=== PATIENT | male | born 1930 | race Caucasian/White ===

== ENCOUNTER → 2016-07-09 | Outpatient (CLI) | payer MEDICARE, OTHER ==
[~2016-07-09] MED LIST: ALAWAY10 ML OPHTH; ALEVE220 MG PO; ASPIRIN325 MG PO; BUFFERIN 325 M325 MG PO; CARDIZEM CD120 MG PO; CORDARONE,PACE200 MG PO; FLOMAX0.4 MG PO; LANOXIN (DIGI125 MCG PO; SOOTHE LUBRICA1 EACH OPHTH; TYLENOL EXTRA500 MG PO; ULORIC80 MG PO; ULTRAM50 MG PO; ZITHROMAX250 MG PO
--- NOTE | ~2016-07-09 | ENPV ---
Vascular Lower Extremities DVT Study Procedure Demographics Patient Name DOROTHY DOWNS Date of Study 07/09/2016 Patient Number [id number] Gender Male Date of 1930 Age 86 Visit Number [id number] Height Accession Number [id number] Weight Room Number BSA BMI Referring [facility] Milton Jarquin MD Interpreting Naman Andrea MD Physician Physician Physician Ordering [facility] Milton Jarquin Backpackers Manager Physician Skiver [employer] Verena Gonzalez, RT,RVT,RDCS Conclusions Summary Normal venous duplex examination of the legs bilaterally with normal venous Doppler signals noted throughout. No evidence of thrombophlebitis is noted bilaterally in the deep and superficial veins of the legs. Small calf thrombi cannot be excluded. Procedure Type of Study: Veins:Lower Extremities DVT Study, Venous Duplex Lower Extremity Bilateral. Indications for Study:Bilateral lower extremity edema. Appropriate Use Criteria:9 Patient Status:Routine. Study Location:Vascular Lab. Technical Quality:Adequate visualization. - Preliminary reported to:Dr. Andres Torres's nurse.. Velocities are measured in cm/s ; Diameters are measured in cm Right Lower Extremities DVT Study Measurements Right 2D and Doppler Measurements + + + + +------+------+ + !Location !Visualized!Compressibility!Thrombosis!Signal!Reflux!Reflux ! ! ! ! ! ! ! !(sec) ! + + + + +------+------+ + !GSV Thigh !Yes !Yes !None !Phasic!No ! ! + + + + +------+------+ + !Common !Yes !Yes !None !Phasic!No ! ! !Femoral ! ! ! ! ! ! ! + + + + +------+------+ + !Prox !Yes !Yes !None !Phasic!No ! ! !Femoral ! ! ! ! ! ! ! + + + + +------+------+ + !Mid Femoral!Yes !Yes !None !Phasic!No ! ! + + + + +------+------+ + !Dist !Yes !Yes !None !Phasic!No ! ! !Femoral ! ! ! ! ! ! ! + + + + +------+------+ + !Popliteal !Yes !Yes !None !Phasic!No ! ! + + + + +------+------+ + !Gastroc !Yes !Yes !None !Phasic!No ! ! + + + + +------+------+ + !PTV !Yes !Yes !None !Phasic!No ! ! + + + + +------+------+ + !Peroneal !Yes !Yes !None !Phasic!No ! ! + + + + +------+------+ + Left Lower Extremities DVT Study Measurements Left 2D and Doppler Measurements + + + + +------+------+ + !Location !Visualized!Compressibility!Thrombosis!Signal!Reflux!Reflux ! ! ! ! ! ! ! !(sec) ! + + + + +------+------+ + !GSV Thigh !Yes !Yes !None !Phasic!No ! ! + + + + +------+------+ + !Common !Yes !Yes !None !Phasic!No ! ! !Femoral ! ! ! ! ! ! ! + + + + +------+------+ + !Prox !Yes !Yes !None !Phasic!No ! ! !Femoral ! ! ! ! ! ! ! + + + + +------+------+ + !Mid Femoral!Yes !Yes !None !Phasic!No ! ! + + + + +------+------+ + !Dist !Yes !Yes !None !Phasic!No ! ! !Femoral ! ! ! ! ! ! ! + + + + +------+------+ + !Popliteal !Yes !Yes !None !Phasic!No ! ! + + + + +------+------+ + !Gastroc !Yes !Yes !None !Phasic!No ! ! + + + + +------+------+ + !PTV !Yes !Yes !None !Phasic!No ! ! + + + + +------+------+ + !Peroneal !Yes !Yes !None !Phasic!No ! ! + + + + +------+------+ + Signature dtt: MINOR STOREY dtdanish: 07/09/16 1334 Physician Self Rashida
== END | disposition disaster alternative care site (69) ==
LOC: GCAR 13:27
DX: M79.89 Other specified soft tissue disorders (principal); D47.3 Essential (hemorrhagic) thrombocythemia

== ENCOUNTER 2016-11-03 08:05 | Inpatient (IN) | payer MEDICARE, OTHER ==
[~2016-11-03] VITALS: Ht 180.3 cm; Wt 105.1 kg
--- NOTE | ~2016-11-03 | CON ---
PATIENT'S NAME: DOROTHY MA [facility] AGE: 86 Y [address] ROOM: [id number] [place], [place] [address] LOCATION: GPCU ADMIT DATE: 11/03/2016 Consultation DISCHARGE DATE: FAMILY PHYSICIAN: Milton Campos MD ATTENDING PHYSICIAN: RODOLFO VALVERDE DATE OF CONSULTATION: 11/03/2016 REFERRING PHYSICIAN: Kamryn Kahn MD This is a patient of Dr. Valverde. Dear Dr. Valverde: Thank you for asking me to see Mr. Ma who is an 86-year-old male patient who was hospitalized from home today. Apparently, he was in his usual state of health about 2 weeks ago. He in fact had physical about a month ago with Dr. Campos at [facility], and apparently he was doing well. About 2 weeks back, he got new glasses and since then, he has been noticing some dizziness off and on, which was severe enough about a week ago that made him vomit quite a bit. After that, he felt reasonably well. Again, this morning around 4 o'clock. He went to the bathroom and came back and just could not catch his breath and he had to sit up in his chair. He tried to walk to another area of his house, which was just 15 feet away and he could not make it. He did not have any chest pain. He just did not feel good and he thinks he was quite short of breath. He eventually came to the emergency room and by the time he came to the emergency room, he was reasonably well. His troponins were elevated, which is the main reason for consultation. He has been in functional class III for the past 6 months at least. There is no paroxysmal nocturnal dyspnea or orthopnea. The patient is quite limited by his back. He has no history of sleep apnea as far as he can tell. There is no lightheadedness. He denies any syncope, palpitations, or ankle swelling. The patient denies hypertension or diabetes. His cholesterol is unknown. He quit smoking in 1974 and he has no family history of premature coronary artery disease. There is no prior history of HI or angina or nitroglycerin use. He denies rheumatic fever. He has a history of heart murmur. He denies congestive heart failure. About a year ago in relation to infection, he developed atrial fibrillation which was paroxysmal in nature. He has been on Cardizem and amiodarone for it ever since. MEDICATIONS: 1. Uloric 80 mg once a day. PATIENT'S NAME: DOROTHY MA [facility] AGE: 86 Y [address] ROOM: [place] [address] [facility] ADMIT DATE: 11/03/2016 Consultation DISCHARGE DATE: FAMILY PHYSICIAN: Milton Campos MD ATTENDING PHYSICIAN: RODOLFO VALVERDE 2. Alaway eye drops p.r.n. dry eyes. 3. Glycol eye drops. 4. Amiodarone 200 mg, half a tablet a day. 5. Diltiazem CD 120 mg once a day. 6. Aspirin/calcium carbonate/Mag 325 mg a day. 7. Acetaminophen 500 mg a day. ALLERGIES: SULFA. PAST MEDICAL HISTORY: 1. History of Roxanne-Durán tear. 2. DJD. 3. Thrombocytosis. 4. GERD. 5. Myelodysplastic syndrome. 6. History of sleep apnea. 7. History of hernia repair. 8. Total left hip arthroplasty x3. FAMILY HISTORY: No premature coronary artery disease. SOCIAL HISTORY: The patient is . He denies abusing alcohol. His appetite and weight are stable. Sleep is fair. REVIEW OF SYSTEMS: A 12-point review of systems reveal the following positives: 1. His nose runs all the time. 2. Corrective lenses. 3. History of duodenal ulcer. 4. Chronic back pain. PHYSICAL EXAMINATION: VITAL SIGNS: On examination, his blood pressure is 100/60, heart rate is 78 and regular, respiration is 18, and oxygen saturations 95% on room air. Afebrile. HEENT: Normal. He is somewhat pale. NECK: Supple. No JVD, thyromegaly, lymphadenopathy, or carotid bruit. PMI is not well located. First and second heart sounds are regular. There are no added sounds or murmurs. CHEST: Clear to auscultation. ABDOMEN: Soft and nontender. EXTREMITIES: Reveal no edema. PATIENT'S NAME: DOROTHY MA [facility] AGE: 86 Y [address] ROOM: [place] [address] LOCATION: GPCU ADMIT DATE: 11/03/2016 Consultation DISCHARGE DATE: FAMILY PHYSICIAN: Milton Campos MD ATTENDING PHYSICIAN: RODOLFO VALVERDE CENTRAL NERVOUS SYSTEM: Intact. ASSESSMENT: An 86-year-old male patient who became fairly suddenly short of breath this morning. He has been having intermittent dizzy spells for the past 2 weeks or so. He has not had any chest pain but his troponins are elevated and his EKG is negative for any acute changes. His chest x-ray reveals no evidence of congestive heart failure. He is anemic. He has severe thrombocytosis. His white count is elevated. His potassium may be elevated because of the white count being high and thrombocytosis as well. His troponins are elevated. His potassium is elevated. His albumin is very low at 1.7. RECOMMENDATIONS: We will follow his troponins. We will check his D-dimer. His proBNP is elevated. We will get an echocardiogram and probably try and do a Lexiscan Cardiolite study tomorrow before making any further decision regarding his management. Again, I appreciate this opportunity to participate in the care of Mr. Ma. MD LOVE GRAYSON/gurdeep /[id number] CC: Rodolfo Valverde MD d: 11/04/16 0010 t: 11/05/16 0801, CONSULTATION REPORT
--- NOTE | ~2016-11-03 | HP ---
PATIENT'S NAME: DOROTHY DOWNS [facility] AGE: 86 Y [address] ROOM: [id number] [place], [place] [address] LOCATION: GPCU ADMIT DATE: 11/03/2016 History & Physical DISCHARGE DATE: FAMILY PHYSICIAN: Milton Campos MD ATTENDING PHYSICIAN: RODOLFO VALVERDE DATE OF SERVICE: 11/03/2016 CHIEF COMPLAINT: Shortness of breath, dizziness, presyncope. HISTORY OF PRESENT ILLNESS: The patient is a very pleasant 86-year-old male who presented to the emergency department with the aforementioned complaints. Also noting that he had vomited twice as of late. He felt generally unwell, and had noted onset of symptoms over the past couple of weeks, somewhat subacutely, and had previously attributed his dizziness and presyncopal symptoms to a new pair of eyeglasses that he recently received. He felt the prescription was off, thus altering his perception and making him feel unwell. The vomiting and shortness of breath are more recent developments. No fevers or chills. No chest pain. No abdominal pain. No bowel or bladder dysfunction and no leg swelling. Specifically, the patient notes no blood in vomit as well as no hematochezia or melena with a recent stool, just as recently as yesterday. He denies any other obvious source of GI bleeding. He does have a history of AFib with RVR in the setting of a pneumonia, approximately a year ago, but per records, does not appear to be on any blood thinner therapy. He does have a remote history of a GI bleed from a duodenal ulcer, but states this was at age 24. He also had a noted Roxanne-Durán tear in June of 2015. There is some question regarding the chronicity of his anemia as last labs on our record approximately a year ago show a hemoglobin of 8.4, and patient notes that he was seen in Dr. Campos's office approximately a month ago with lab at that time, which he was told were very stable. Also in records, the patient does have a diagnosis of MDS, though denies ever having had a bone marrow biopsy. PAST MEDICAL HISTORY: 1. Thrombocytosis. 2. Osteoarthritis. 3. GERD. 4. Questionable MDS. 5. Obstructive sleep apnea. 6. History of AFib with RVR, provoked by acute infection, currently well controlled. PAST SURGICAL HISTORY: 1. Tonsils and adenoidectomy. PATIENT'S NAME: DOROTHY DOWNS [facility] AGE: 86 Y [address] ROOM: [id number] [place], [place] [address] [facility] ADMIT DATE: 11/03/2016 History & Physical DISCHARGE DATE: FAMILY PHYSICIAN: Milton Campos MD ATTENDING PHYSICIAN: RODOLFO VALVERDE 2. Hernia repair in the 1950s. 3. Left total hip arthroplasty with subsequent revisions. FAMILY HISTORY: Dad had a heart murmur and COPD. Mom had arthritis, otherwise reviewed and noncontributory to the current presentation. SOCIAL HISTORY: The patient reports an extensive remote smoking history, however, quit years ago. Previously did also smoke from a pipe. As of late, has noted occasional alcohol use. Previously, this was more frequent and documented as daily. ALLERGIES: NO KNOWN DRUG ALLERGIES. MEDICATIONS: Currently being reconciled. Most recent discharge notes an aspirin, Uloric, Cardizem, amiodarone, as most pertinent medications. REVIEW OF SYSTEMS: A complete review of systems was performed and negative except as noted above in HPI. PHYSICAL EXAMINATION: VITAL SIGNS: In the emergency department notable for temp 96.9, pulse 78, respirations 18, blood pressure 101/58, saturating 95% on room air. GENERAL: The patient is a pale-appearing, very pleasant, elderly male who actually appears younger than stated age, seen in no acute distress in the emergency department. HEENT: Head: Normocephalic, atraumatic. Eyes: Pupils equal, round, reactive to light. Extraocular muscles are intact. Conjunctival pallor noted. No scleral icterus. ENT: Dry mucous membranes with no nasal discharge appreciated. NECK: Supple. No thyromegaly. No palpable lymphadenopathy. No JVD. CARDIOVASCULAR: With regular rate and rhythm. No murmurs appreciated with 2+ pulses bilateral, radial, and dorsalis pedis. LUNGS: Respirations are clear to auscultation bilaterally with normal effort. Saturating well on room air. ABDOMEN: Soft, nontender, and nondistended with normoactive bowel sounds. EXTREMITIES: Without appreciable edema or other skin lesions. NEUROLOGIC: The patient is alert and oriented, pleasant and cooperative. Moving all extremities spontaneously without appreciable focal deficit. PSYCHIATRIC: Normal mood and affect. LABORATORY DATA AND IMAGING STUDIES: In the emergency department, CBC notable for a white count of 11.3, hemoglobin PATIENT'S NAME: DOROTHY DOWNS [facility] AGE: 86 Y [address] ROOM: [id number] [place], [place] [address] LOCATION: GPCU ADMIT DATE: 11/03/2016 History & Physical DISCHARGE DATE: FAMILY PHYSICIAN: Milton Campos MD ATTENDING PHYSICIAN: RODOLFO VALVERDE 5.1, MCV non calculable, platelets 578. CMP notable for sodium 150, potassium 2.5, chloride 126, bicarb 15 with an anion gap of approximately 7-8 once corrected for albumin, BUN 15, creatinine 0.6, glucose 60. LFTs notable for total protein of 2.9, albumin 1.7, AST 11, ALT less than 10, alkaline phosphatase 15, bilirubin 0.4. Troponin 0.189. An EKG showing first-degree AV block without ischemic changes. Procalcitonin is less than 0.05. Lactic acid is 1.4. Fecal occult blood test in the ER is negative. Lipase is 103. TSH is 2.89. BNP is 819. ASSESSMENT: 1. Acute on chronic severe anemia. 2. Severe hypokalemia. 3. Hypernatremia. 4. Severe protein-calorie malnutrition. 5. Possible myelodysplastic syndrome. 6. Mild troponin elevation. 7. Non-anion gap metabolic acidosis. 8. Hypoglycemia. PLAN: We will admit the patient to PCU on telemetry given degree of electrolyte and hemoglobin derangements. In the emergency department, 2 units of packed red blood cells transfused, has been ordered as well as initial efforts at potassium repletement with 80 mEq given prior to my evaluation. We will further workup this anemia given absence of potential source by history with LDH, haptoglobin, reticulocyte count, and iron studies. This will be done in advance of transfusion. We will start D5 half-normal saline with 20 mEq of potassium chloride to help in correction of hypernatremia, hypokalemia, hypoglycemia, respectively. There is question of history of MDS by history though not sure that this has been confirmed previously, we will attempt to obtain records from Dr. Campos's office regarding most recent labs and prior evaluation of anemia and thrombocytosis. The patient would appear to fit with severe protein-calorie malnutrition based on LFT panel and questionability of synthetic function of his liver, though no prior history of liver disease. We will consider further workup regarding this as course continues. For mild troponin elevation, we will repeat this in approximately 6 hours and stop there if trending downward, as the patient is without EKG changes or chest pain acutely, and this is likely secondary to demand ischemia. We will hold pharmacologic DVT prophylaxis given degree of acute anemia. The patient is a full code. DISPOSITION: To be determined pending initial course, likely anticipate at least 2-3 days during stay and we will have PT, OT, and Nutrition see patient. PATIENT'S NAME: DOROTHY DOWNS [facility] AGE: 86 Y [address] ROOM: [id number] [place], [place] [address] [facility] ADMIT DATE: 11/03/2016 History & Physical DISCHARGE DATE: FAMILY PHYSICIAN: Milton Campos MD ATTENDING PHYSICIAN: RODOLFO VALVERDE TIME: I spent 35 minutes on date of admission, reviewing records from the emergency department as well as in discussion with Dr. Jo, and [id number] evaluation of the patient determining plan of care. RODOLFO VALVERDE MD JLUIS/modl /[id number] ADDENDUM TO DICTATION: Received notification from lab approximately 1600 on 11/03 that repeat blood sample is drastically different than initial sample, and looks as if initial sample was diluted by NS. Repeat labs notable for Hgb 10.5, K 6.1, Troponin now 0.7. I have ordered a STAT EKG to assess for changes related to hyperkalemia, as well as ischemic changes now in the setting of elevated troponin, which in hindsight could be related to presyncopal symptoms along with nausea/vomiting and diaphoresis and was likely diluted on initial sample. I have called and discussed the case with Dr. Juares with cardiology and we will pursue treatment as possible NSTEMI, starting a heparin infusion now. We will also trend cardiac enzymes. I have discussed these findings and the plan of care with the patient, who voices understanding. Rodolfo Valverde D: [id number] T: 702 HISTORY & PHYSICAL
--- NOTE | ~2016-11-03 | ER ---
PATIENT'S NAME: DOROTHY DOWNS [facility] AGE: 86 Y [address] ROOM: [address] [place], [place] [address] LOCATION: GPCU ADMIT DATE: 11/03/2016 ER/Outpatient Report DISCHARGE DATE: FAMILY PHYSICIAN: Milton Campos MD ATTENDING PHYSICIAN: CHANEL VALVERDE TIME OF ARRIVAL: 0805 hours. TIME OF EVALUATION: 0806 hours. CHIEF COMPLAINT: Shortness of breath, dizzy. HISTORY OF PRESENT ILLNESS: The patient is an 86-year-old male who presents to the emergency department today with a chief complaint of shortness of breath and dizzy. He reports it started a few days prior to arrival. It has just progressively worsened. He reports that he got up to go to the bathroom and felt very lightheaded, like he was going to pass out. Denies any fevers or chills. Does report some nausea and vomiting x2. Denies any blood in his vomit. Denies any cough. No chest pain. Denies any diarrhea. He reports he had a normal bowel movement yesterday. It was brown. No dark, tarry stools. No blood in the stool. PAST MEDICAL HISTORY: Hyperuremia, coronary artery disease, atrial fibrillation, osteoarthritis, chronic dyspepsia with history of GI bleed, and Roxanne-Durán tear. PAST SURGICAL HISTORY: Tonsils and adenoids, hernia, left hip x2, and left heart catheterization. SOCIAL HISTORY: The patient has a [id number] of smoking, quit in 1974. Quit drinking alcohol 3 years ago. Denies any illicit drug use. ALLERGIES: SULFA WHICH CAUSES A RASH. MEDICATIONS: Please see list. CAR MANAGER: Dr. Pierre. PATIENT'S NAME: DOROTHY DOWNS [facility] AGE: 86 Y [address] ROOM: [address] [place], [place] [address] LOCATION: GPCU ADMIT DATE: 11/03/2016 ER/Outpatient Report DISCHARGE DATE: FAMILY PHYSICIAN: Milton Campos MD ATTENDING PHYSICIAN: CHANEL VALVERDE REVIEW OF SYSTEMS: All systems are reviewed by myself and are negative with the exception of those discussed in the HPI and Past Medical History. PHYSICAL EXAMINATION: VITAL SIGNS: Weight 104.3 kg, blood pressure 101/58, pulse 78, respiratory rate 18, temperature 96.9, and oxygen saturation 95% on room air. GENERAL: The patient is an 86-year-old male, appears stated age, in no acute distress at this time. HEENT: Head is normocephalic and atraumatic. Pupils are equal, round, and reactive to light and accommodating. Conjunctivae are mildly pale. NECK: Supple. There is no nuchal rigidity. CARDIOVASCULAR: Regular rate and rhythm. No murmurs, rubs, or gallops. LUNGS: Clear to auscultation bilaterally. No wheezes, rales, or rhonchi. ABDOMEN: Soft, nontender, and nondistended. No rebound, rigidity, or guarding. MUSCULOSKELETAL: The patient moves all 4 extremities. SKIN: Warm and dry. LABORATORY AND X-RAY DATA: Labs and x-rays are obtained. EKG is obtained, is interpreted by myself at 0819 hours, shows sinus rhythm with a rate of 75, left axis deviation, MD interval 252. Otherwise, normal interval. No ST elevation or ST depression. There are nonspecific T-waves. Lactate is normal. CBC: White blood cell count 11.3, hemoglobin 5.1, hematocrit 18, and platelets 578. PTT is normal. INR is 1.12. CMP: Sodium 150, potassium 2.5, chloride 126, CO2 of 15, BUN and creatinine normal, glucose 60. AST is normal. ALT is less than 10. Lipase is normal. Occult blood is negative. Procalcitonin is less than 0.05. CK is 20, CK-MB is normal, troponin 0.189. Free T4 is normal, TSH is normal. ProBNP is 819. IMPRESSION: 1. Acute on chronic blood loss anemia. 2. Elevated troponin, likely due to acute on chronic blood loss anemia. 3. Hypernatremia. 4. Hypokalemia. 5. Initial visit. EMERGENCY DEPARTMENT COURSE: The patient was brought back to the examination room. Seen and evaluated by myself. IV is established. Laboratory analysis and imaging are obtained as described above. I have discussed the results with the patient. I have recommended admission to the hospital for further evaluation, treatment, and management. The patient is agreeable. His is agreeable. The patient's risks and benefits are discussed for blood transfusion. The patient does wish PATIENT'S NAME: DOROTHY [facility] AGE: 86 Y [address] ROOM: [address] [place], [place] [address] [facility] ADMIT DATE: 11/03/2016 ER/Outpatient Report DISCHARGE DATE: FAMILY PHYSICIAN: Milton Campos MD ATTENDING PHYSICIAN: CHANEL VALVERDE to proceed with transfusion. The patient is typed and crossed for 4 units and is written for transfusion of 2 units. I have also given the patient 20 mEq of potassium chloride IV as well as 60 mEq of potassium chloride orally. I have discussed the case with Dr. Valverde who is on-call for the Hospitalist Service. He does agree to accept the patient for further evaluation, treatment, and management. The patient is also given 1 L of normal saline IV. The patient's questions are answered. He is without further questions at this time. DISPOSITION: The patient is admitted under the care of Dr. Valverde in stable condition. DO GIORGI RIVERA/zelaleml /[id number] d: 11/03/16 1342 t: 11/04/16 0810, OUTPATIENT REPORT
--- NOTE | ~2016-11-03 | ESTC ---
Cardiac Perfusion Imaging Demographics Patient Name YARELI Morgan Gender Male Patient Number [id number] Race Visit Number [id number] Ethnicity Corporate ID Room Number G6318 Accession Number [id number] Height 71 inches Date of 1930 Weight 239 pounds Interpreting Criss Harry Date of study 11/04/2016 Physician Supervising /YULIAP Criss Harry NM Technologist Mateo Terry MD Ordering Physician Stress Jadon Bates hitch technician RVT Stress ECG Reading Criss Harry Nurse Margaret Jaimes RN Physician The procedure was explained in detail to the patient. Risks, complications and alternative treatments were reviewed. Written consent was obtained. Medications Reviewed with Patient prior to Procedure. Procedure Procedure Type: Nuclear Stress Test:Pharmacological, Lexiscan, Cardiolite Stress Test Procedure Start time: 11/04/2016 09:55 Indications: Shortness of breath and Dizziness. Conclusions Summary Lexiscan cardiolite with no EKG changes of ischemia. Basal 2/3 of the inferior septum,inferior wall and inferolateral moderate fixed defect most consistent with soft tissue attenuation. LVEF : 74%. Normal WM. Stress Protocols Resting ECG RSR. 1 AV block. Bi fascicular block. Pre-stress physical exam: Un changed. Predicted HR: 133 bpm ECG Findings No ECG changes suggestive of ischemia. Arrhythmias No rhythm abnormality. Symptoms No symptoms with Lexiscan infusion. Stress Interpretation Lexiscan cardiolite with blunted heart rate response and no symptoms. No EKG changes of ischemia. No new arrythmias. Imaging Results Summed scores - Summed stress score: 8 - Summed rest score: 8 - Summed difference score: 0 Stress ejection Ejection fraction:74 % EDV :130 ml ESV :34 ml Stroke volume :96 ml LV mass :158 gr LV size:Normal Normal LV function Imaging Protocols Rest Stress Isotope:Tc99m Sestamibi IV Isotope: Tc99m Sestamibi IV Isotope dose:14.6 mCi Isotope dose:43.3 mCi Date:11/04/2016 08:33 Date:11/04/2016 11:32 Technique: SPECT Technique: Gated Supine SPECT Supine Scan Time:45-60 minutes post Scan Time:45-60 minutes post injection injection Procedure Medications - Regadenoson (Lexiscan) 0.4 mg IV over 10-15 sec. I.V. . Medications administered per verbal order and read back to physician prior to administration. Medical History Admission Data Admission date: 11/03/2016 Admission Time: 09:54 Hospital Status: Inpatient. Signatures dtt: Kamryn Kahn dtd: 11/04/16 0955 Physician Self Edit
--- NOTE | ~2016-11-03 | CON ---
PATIENT'S NAME: DOROTHY MA [facility] AGE: 86 Y [address] ROOM: G6318 [place], [place] [address] LOCATION: GPCU ADMIT DATE: 11/03/2016 Consultation DISCHARGE DATE: 11/07/2016 FAMILY PHYSICIAN: Milton Campos MD ATTENDING PHYSICIAN: Rodolfo Valverde REFERRING PHYSICIAN: Kamryn Kahn MD Consult to Dr. Jamal Buckley. REASON FOR VISIT: Dorothy Ma is an 86-year-old man hospitalized for evaluation and treatment of atypical chest pain and dyspnea at rest who carries the diagnosis of myelodysplastic syndrome-thrombocytosis. HISTORY OF PRESENT ILLNESS: The history of the present illness is from the patient who is a reasonably good historian; his physician, Dr. Milton Campos; the [facility] record; and the current and [facility] record. Mr. Ma was in his normal state of health until 4 a.m. on 11/03/2016. He lived at home in [place], [place] with his . He had no exercise program. He was limited by pain in his knees and was not limited by dyspnea on exertion. He used a cane and a walker for the pain and for unsteadiness. 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 He had seen Dr. Campos for a regular checkup on 10/05/2016 and got a good report. At that time, the white count was 15,500, the hemoglobin was 10.4 g/dL, and the platelets were 1,500,000. The MCV was 87. The patient had 67% neutrophils and 28% lymphocytes. The urinalysis revealed 10 to 20 wbc/HPC, but no bacteria. The general chemical profile revealed the GFR was 35 mL/M with a creatinine of 1.94 mg/dL. The patient made an appointment for December. At 4 a.m. on 11/03/2016, the patient experienced 4 "shocks" substernally. They were momentary, they were unpleasant. He developed dyspnea at rest. He developed no nausea, palpitations, or heavy chest pain. He developed no cough or pleurisy. Given the sudden onset of dyspnea, the patient and his were concerned he had a serious cardiopulmonary syndrome and reported to the emergency room. He had mild disequilibrium with few other associated symptoms. The patient was evaluated in the emergency room on 11/03/2016 by Rei Jo DO. The urinalysis was unremarkable. The white count was 23,900, the hemoglobin PATIENT'S NAME: DOROTHY MA [facility] AGE: 86 Y [address] ROOM: [address] [address] LOCATION: GPCU ADMIT DATE: 11/03/2016 Consultation DISCHARGE DATE: 11/07/2016 FAMILY PHYSICIAN: Milton Campso MD ATTENDING PHYSICIAN: Rodolfo Valverde 10.5, the MCV 88, and the platelets 1,320,000. The patient has 87% neutrophils and 5% lymphocytes. There had been concern because the initial hemoglobin was 5.1 g/dL, but the laboratory retracted that report. Apparently, the specimen was overly dilute. The patient has been seen in cardiac consultation since he has been hospitalized. Dr. Kahn has performed the evaluation. He recommended checks of his troponins and his D-dimer. He recommended an echocardiogram and a decision regarding a Lexiscan Cardiolite stress test. The echocardiogram revealed normal left ventricular contractility and an ejection fraction of 50% to 55%. There was mild valvular aortic stenosis and regurgitation. There was also mild tricuspid regurgitation and pulmonary hypertension. The patient's sestamibi scan was done and its result is pending. The ventilation perfusion scan revealed no sign of a PE. The patient will be going home. The discharge diagnosis is "presyncope." The patient is seen to see if these events could be related to his myelodysplastic syndrome-thrombocytosis. Mr. 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 This was also associated with intermittent but generally progressive thrombocytosis first developing between 03/09/1997 and 03/08/1998. On 08/08/2011, a bone marrow aspiration biopsy was diagnostic. On 09/13/2011, hydroxyurea was initiated. On 04/04/2012, hydroxyurea was discontinued. The patient has just been on aspirin. Because thrombocytosis associated with myelodysplasia does not place patients at high stroke risk (as does a myeloproliferative disorder), surveillance has been felt reasonable. This has also been felt reasonable because he has been asymptomatic from his MDS-T and because there was no dependably helpful treatment for it. PAST MEDICAL HISTORY: Active medical problems chronic and diagnosed. 1. MDS-T noted in 2011 as noted above. The IPSS score was 0. 2. Hypercholesterolemia. 3. Acid peptic disease, quiescent. 4. Colonic polyposis. 5. Colonic diverticulosis. 6. Osteoarthritis in the back, hips, and knees as well as right shoulder. 7. Class 2 obesity. 8. Bilateral cataracts. 9. History of obstructive sleep apnea. 10. Cholelithiasis. 11. Atherosclerotic vascular disease on CAT scan. PATIENT'S NAME: DOROTHY MA [facility] AGE: 86 Y [address] ROOM: [place] [address] LOCATION: GPCU ADMIT DATE: 11/03/2016 Consultation DISCHARGE DATE: 11/07/2016 FAMILY PHYSICIAN: iMlton Campos MD ATTENDING PHYSICIAN: Rodolfo Valverde 12. Paroxysmal atrial fibrillation. This was first documented in September 2015 when he presented with atrial fibrillation with rapid ventricular response. The hospitalization was complicated with atypical pneumonia and urinary retention. MEDICATIONS UPON ADMISSION: 1. APAP 1000 mg p.o. b.i.d. 2. Amiodarone 100 mg p.o. q.24 hours. 3. Aspirin 325 mg daily. 4. Diltiazem HCL 120 mg daily. 5. Febuxostat 80 mg p.o. q.24 hours. 6. Glycerin/propylene glycol eye drops. 7. Ketotifen fumarate eye drops. ALLERGIES: 1. SULFA LEADS TO RASH. 2. THE PATIENT RECEIVED 2 UNITS OF PACKED RED BLOOD CELLS DURING THIS HOSPITALIZATION. TOBACCO: The patient does not currently smoke tobacco and did have a 25 pack-year smoking history. He has abstained since 1985. ALCOHOL: Moderate intake daily. SOCIAL HISTORY: The patient lives in [place], [place] with his . REVIEW OF SYMPTOMS: Negative other than those noted in the history of the present illness. PHYSICAL EXAMINATION: VITAL SIGNS: Pulse 60 and regular, blood pressure 130/70, respiratory rate 16, temperature 98.7, SpO2 of 95% on room air. Height 71 inches, weight 102.6 kg (226 pounds). BMI 31.5 kg/m2. GENERAL: Well-developed, obese, 86-year-old, male, in no acute distress. HEENT: Unremarkable. LYMPH NODES: None palpable. NECK: Without JVD or carotid bruits. CHEST: Clear anteriorly. CV: Irregularly irregular rhythm. No murmurs, bruits, or adventitious sounds. ABDOMEN: No masses, tenderness, or organomegaly. PATIENT'S NAME: DOROTHY MA [facility] AGE: 86 Y [address] ROOM: [place] [address] LOCATION: GPCU ADMIT DATE: 11/03/2016 Consultation DISCHARGE DATE: 11/07/2016 FAMILY PHYSICIAN: Milton Campos MD ATTENDING PHYSICIAN: Rodolfo Valverde GENITALIA AND RECTAL: Not examined. EXTREMITIES: Unremarkable. NEURO: The patient is alert and oriented and moves all 4 extremities. IMPRESSION: 1. Uncharacterized episode of atypical chest pain and sudden onset of dyspnea in a patient who carries a diagnosis of MDS-thrombocytosis. 2. The MDS-thrombocytosis probably did not precipitate this episode. 3. If the patient becomes transfusion dependent, oral lenalidomide probably would help. The response rate is around 60% to 70% in patients with MDS- thrombocytosis. 4. There is no current indication for treatment. As noted before, thrombocytosis in the setting of myelodysplastic syndrome does not place the patient at high risk for stroke. RECOMMEND: DIAGNOSTIC: 1. Continue every [address] Campos. TREATMENT: 1. No antineoplastic therapy at this point. 2. Continue aspirin. PATIENT EDUCATION: 1. Told that if he became transfusion dependent, consideration for a repeat bone marrow aspiration and biopsy and/or lenalidomide should be entertained. This is oral medicine, he could probably tolerate it, and it is quite active in patients with MDS-thrombocytosis who are transfusion dependent. 2. Acknowledged we would be happy to see him, but as long as his family or Dr. Campos is in touch with us if he becomes transfusion dependent that would work well. DAVID RAO MD GKB/modl /[id number] CC: Kamryn Kahn MD d: 11/08/16 0134 t: 11/08/16 1613, CONSULTATION REPORT
--- NOTE | ~2016-11-03 | ECHO ---
Transthoracic Echocardiography Report (TTE) Demographics Patient Name DOROTHY DOWNS Date of Study 11/04/2016 Patient Number [id number] Visit Number [id number] Date of 1930 Room Number G6318 Gender Male Number Age 86 year(s) Referring [facility] Milton Jarquin Inspector Hairspring Truing Hank RVT, Physician MD COLEEN Oconnor Physician Interpreting Criss Harry Baby Nurse Physician Supervising Ordering Criss Harry MD/NURA Physician Nurse Stress Sorting Machine Operator Conclusions Contractility Score Summary Normal Left Ventricular contractility was noted. Summary The estimated left ventricular ejection fraction is 50-55%.LV wall thickness and internal dimensions are normal.Septum is flattened during systole and diastole most consistent with pressure and volume overload of the RV. The left atrium is mildly dilated. RA is mild to moderately dilated. Increased RA pressures. RV is mildly dilated with normal function. There is mild valvular aortic stenosis by the Continuity Equation. The peak velocity is 2.41 m/s, the mean gradient is 13 mmHg, and the valve area based on the continuity equation is 1.49 cm2, stroke volume index is 32.74 ml/m2. There is mild aortic regurgitation by color doppler. Mild tricuspid regurgitation by color Doppler. There is mild pulmonary hypertension. The pulmonary pressure (RVSP) is 37 mmHg. Pulmonic valve is not visualized or examined. Procedure Type of Study TTE procedure:2D Echocardiogram, M-Mode, Doppler , Color Doppler. Procedure Date Date: 11/04/2016 Start: 10:19 AM Study Location: Inpatient Portable Technical Quality: Adequate visualization Indications:Shortness of breath and Dizziness. Appropriate Use Criteria: 9 Patient Status: Routine HR: 60 bpm BP: 113/63 mmHg M-Mode/2D Measurements LV Diastolic Dimension: 4.51 cm LV Systolic Dimension: 2.77 cm LV Septum Diastolic: 1.02 cm LV PW Diastolic: 0.96 cm AO Root Dimension: 2.9 cm Cardiac Output: 4.46 l/min AV Cusp Separation: 1.3 cm RV Diastolic Dimension: 3.73 cm LA volume: 35 ml LVOT: 2.3 cm RV Base: 3.17 cm LVOT VTI: 17.9 cm RV Mid: 3.54 cm LV Stroke volume: 74.33 ml TAPSE: 2.64 cm TDI-S': 15.6 cm/s Doppler Measurements AV Peak Velocity: 2.41 m/s MV Peak E-Wave: 0.68 m/s AV Peak Gradient: 23.23 mmHg MV Peak A-Wave: 1.31 m/s AV Mean Gradient: 13 mmHg MV E/A Ratio: 0.52 LVOT Peak Velocity: 0.86 m/s MV P1/2t: 83 msec TR Gradient:30.25 mmHg PV Peak Velocity: 1.01 m/s Estimated RAP:7 mmHg PV Peak Gradient: 4.08 mmHg Estimated RVSP: 37 mmHg Estimated PASP: 37.25 mmHg E' Septal Velocity: 0.05 m/s A' Septal Velocity: 0.1 m/s E' Lateral Velocity: 0.08 m/s A' Lateral Velocity: 0.11 m/s Findings Left Ventricle Normal LV wall thickness,internal dimensions and EF.Septum is flattened during systole and diastole consistent with pressure and volume overload of the RV. Right Ventricle RV is mildly dilated with normal function. Left Atrium The left atrium is mildly dilated. The interatrial septum appears aneurysmal without evidence of shunting by color doppler. Right Atrium RA is mild to moderately dilated. RA pressures are increased. Mitral Valve Mild mitral annular calcification. Aortic Valve The aortic valve is moderately sclerotic. There is mild aortic stenosis by the Continuity Equation. The peak velocity is 2.41 m/s, the mean gradient is 13 mmHg, and the valve area based on the continuity equation is 1.49 cm2, stroke volume index is 32.74 ml/m2. There is mild aortic regurgitation by color Doppler. Tricuspid Valve Mild tricuspid regurgitation by color Doppler. There is mild pulmonary hypertension. The pulmonary pressure (RVSP) is 37 mmHg. Pulmonic Valve Pulmonic valve is not well seen.Not evaluated. Pericardial Effusion No evidence of pericardial effusion. Miscellaneous Visualized portions of the aortic root and ascending aorta appear normal in size. Pleural Effusion No evidence of pleural effusion. Contractility Score LV regional wall motion:(0-Non visualized 1-Normal 2-Hypokinesis 3-Akinesis 4-Dyskinesis 5-Aneurysm) Signature dtt: Kamryn Kahn dtd: 11/04/16 1019 Physician Self Edit
--- NOTE | ~2016-11-03 | DS ---
PATIENT'S NAME: DOROTHY DOWNS [facility] AGE: 86 Y [address] ROOM: G6318 [place], [place] [address] LOCATION: GPCU ADMIT DATE: 11/03/2016 Discharge Summary DISCHARGE DATE: 11/07/2016 FAMILY PHYSICIAN: Milton Campos MD ATTENDING PHYSICIAN: Rodolfo Valverde DISCHARGE DIAGNOSES: 1. Presyncope. 2. Acute on chronic anemia. 3. Chronic renal insufficiency. 4. Hypokalemia. 5. Hyponatremia. 6. Severe protein-calorie malnutrition. 7. Myelodysplastic syndrome. 8. Increased troponins. 9. Aortic stenosis and aortic regurgitation. REASON FOR ADMISSION: Weakness to the point of presyncope. LABORATORY DATA: Current sodium is 131. He admitted to a high of 134, but sort of remained in that range. Potassium has been normal throughout the hospitalization. The remainder of his electrolytes are fine. Calcium and BUN normal. Creatinine up to 1.4 with a GFR of 41. His liver function tests have all been normal. CPK and MB were normal, but his troponins have been consistently elevated. Reference is made to Cardiology notes. Note that his proBNP was at 11,551 on November 04, 2016, and his BNP was 178. Osmolality 273, pre-albumin 14, digoxin level was 0.81. Vitamin B12 and ferritin were both high. TSH was normal at 2.2. Hematology showed white count down to 11.4 from 13.6, it has remained elevated throughout likely related to his myelodysplastic syndrome. Hemoglobin 9.8, and that has been stable. RDW 26.3 with platelets of 880. They have been in that range the whole time. Urinalysis on November 03, 2016, showed only 0-2 white cells with rare bacteria and 30 mg/dL protein. Urine osmolality was normal at 3.93. Random sodium was 56. The V/Q scan on November 06, 2016, was negative. He had a cardiac stress test. I do not have results of that yet, but I believe, it was negative. Last chest x-ray on 11/06/2016 was normal. HOSPITAL COURSE: One of gradual improvement. He is able to walk with less dyspnea now. The plan is to discharge him after he follows up with his felled seam operator chainstitch today, Dr. Carlson. He will be discharged on diet ad danyell. Medications will be per nursing med recon form with any deletions or substitutions by Dr. Carlson. Activity will PATIENT'S NAME: DOROTHY DOWNS [facility] AGE: 86 Y [address] ROOM: [address] [place] [id number] LOCATION: GPCU ADMIT DATE: 11/03/2016 Discharge Summary DISCHARGE DATE: 11/07/2016 FAMILY PHYSICIAN: Milton Campos MD ATTENDING PHYSICIAN: Rodolfo Valverde be ad danyell. At this time, he does not have the need for oxygen, although he needed that during that admission. Followup will be with Dr. Campos in 2 weeks if we can make that happen and with Dr. Rock Carlson, per his recommendation after he sees him today. Note that, discharge preparation did take longer than 30 minutes. YANELIS ESTES MD CCYi/modl /[id number] d: 11/08/16 0643 t: 11/09/16 1748, DISCHARGE SUMMARY
[~2016-11-03 08:05] MED LIST changes: -BUFFERIN 325 M325 MG PO; -TYLENOL EXTRA500 MG PO
[2016-11-03] MEDS ORDERED: BUFFERIN 325 M325 MG PO (12:45)
[2016-11-03] MEDS ORDERED: TYLENOL EXTRA500 MG PO (12:55)
[2016-11-03 15:30] LABS: BASOPHIL # 0.4 K/uL (0.0-0.2); BASOPHIL % 1.6 %; EOSINOPHIL # 0.2 K/uL (0.0-0.5); EOSINOPHIL % 0.8 %; HEMOGLOBIN 10.5 g/dL (11.0-16.0); IMMATURE GRANULOCYTE # 0.2 K/uL (0.0-0.3); IMMATURE GRANULOCYTE % 0.9 %; LYMPHOCYTE # 1.3 K/uL (0.8-4.0); LYMPHOCYTE % 5.4 %; MONOCYTE % 4.3 %; MPV 9.9 fl (9.4-12.4); NEUTROPHIL # (ANC) 20.8 K/uL (1.4-9.0); NRBC % 0.5 /100WBC (0-0.00); RDW-CV 26.3 % (11.9-14.6)
[2016-11-03 15:52] LABS: CALCIUM 8.2 mg/dL (8.5-10.5)
[2016-11-03 15:59] LABS: ANION GAP 10.1 (10.0-19.0); CREATININE 1.6 mg/dL (0.6-1.3); POTASSIUM 6.1 mMol/L (3.7-5.1)
[2016-11-03 16:02] LABS: HEMATOCRIT 32.1 % (33.0-50.0); MCH 28.8 pg (27.0-34.0); MCHC 32.7 gm/dL (32.0-36.5); MCV 87.9 fl (83.0-98.0); PLATELET COUNT 1320 K/uL (150-450); RBC 3.65 M/uL (3.50-5.50); WBC 23.9 K/uL (4.0-11.0)
[2016-11-03 19:20] LABS: BILIRUBIN URINE NEGATIVE (NEGATIVE); BLOOD URINE NEGATIVE /UL (NEGATIVE); COLOR URINE YELLOW (YELLOW); GLUCOSE URINE NEGATIVE (NEGATIVE); KETONE URINE NEGATIVE (NEGATIVE); LEUKOCYTES URINE NEGATIVE /UL (NEGATIVE); NITRITE URINE NEGATIVE (NEGATIVE); PROTEIN URINE 30 mg/dL (NEGATIVE); SPEC GRAVITY URINE 1.015 (1.003-1.035); TURBIDITY URINE CLEAR (CLEAR); UROBILINOGEN URINE NORMAL (NORMAL)
[2016-11-03 19:30] LABS: RBC URINE NEGATIVE #/HPF (NEGATIVE); WBC URINE 0-2 #/HPF (NEGATIVE)
[2016-11-03 19:31] LABS: BACTERIA URINE RARE (NEGATIVE)
[2016-11-03 21:06] LABS: BASOPHIL # 0.4 K/uL (0.0-0.2); BASOPHIL % 1.8 %; EOSINOPHIL # 0.3 K/uL (0.0-0.5); EOSINOPHIL % 1.2 %; HEMATOCRIT 32.7 % (33.0-50.0); HEMOGLOBIN 10.7 g/dL (11.0-16.0); IMMATURE GRANULOCYTE # 0.1 K/uL (0.0-0.3); IMMATURE GRANULOCYTE % 0.7 %; LYMPHOCYTE # 1.7 K/uL (0.8-4.0); LYMPHOCYTE % 7.8 %; MCH 28.7 pg (27.0-34.0); MCHC 32.7 gm/dL (32.0-36.5); MCV 87.7 fl (83.0-98.0); MONOCYTE # 1.1 K/uL (0.0-1.0); MONOCYTE % 5.1 %; MPV 10.3 fl (9.4-12.4); NEUTROPHIL # (ANC) 17.8 K/uL (1.4-9.0); NEUTROPHIL % 83.4 %; NRBC % 0.6 /100WBC (0-0.00); PLATELET COUNT 1230 K/uL (150-450); RBC 3.73 M/uL (3.50-5.50); RDW-CV 26.3 % (11.9-14.6); WBC 21.3 K/uL (4.0-11.0)
[2016-11-03 21:17] LABS: CALCIUM 8.2 mg/dL (8.5-10.5); CREATININE 1.7 mg/dL (0.6-1.3)
[2016-11-04 03:18] LABS: HEMATOCRIT 30.3 % (33.0-50.0); HEMOGLOBIN 9.9 g/dL (11.0-16.0); MCH 28.5 pg (27.0-34.0); MCHC 32.7 gm/dL (32.0-36.5); MCV 87.3 fl (83.0-98.0); MPV 9.9 fl (9.4-12.4); RBC 3.47 M/uL (3.50-5.50); RDW-CV 26.5 % (11.9-14.6)
[2016-11-04 03:25] LABS: PLATELET COUNT 901 K/uL (150-450); WBC 17.2 K/uL (4.0-11.0)
[2016-11-04 03:41] LABS: ALBUMIN 3.5 gm/dL (3.5-5.0); ANION GAP 12.2 (10.0-19.0); CALCIUM 8.1 mg/dL (8.5-10.5); CREATININE 1.6 mg/dL (0.6-1.3); POTASSIUM 5.2 mMol/L (3.7-5.1); TOTAL BILIRUBIN 0.8 mg/dL (0.0-1.5); TOTAL PROTEIN 6.2 g/dL (6.0-8.4)
[2016-11-04 04:13] LABS: ABSOLUTE NEUTROPHIL CT (ANC) 13.9 K/uL (1.4-9.0); BANDED NEUTROPHIL # 2.9 K/uL (0.0-0.1); BANDED NEUTROPHILS % 17 %; LYMPHOCYTE # 1.7 K/uL (0.8-4.0); LYMPHOCYTE % 10 %; MONOCYTE # 0.9 K/uL (0.0-1.0); SEGMENTED NEUTROPHIL % 64 %
[2016-11-04 14:05] LABS: BASOPHIL # 0.5 K/uL (0.0-0.2); BASOPHIL % 2.6 %; EOSINOPHIL # 0.5 K/uL (0.0-0.5); EOSINOPHIL % 2.6 %; HEMOGLOBIN 10.6 g/dL (11.0-16.0); IMMATURE GRANULOCYTE # 0.2 K/uL (0.0-0.3); LYMPHOCYTE # 1.8 K/uL (0.8-4.0); LYMPHOCYTE % 10.1 %; MONOCYTE # 1.1 K/uL (0.0-1.0); MPV 10.2 fl (9.4-12.4); NEUTROPHIL # (ANC) 13.6 K/uL (1.4-9.0); NEUTROPHIL % 77.7 %; RDW-CV 26.8 % (11.9-14.6)
[2016-11-04 14:14] LABS: PLATELET COUNT 1041 K/uL (150-450); RBC SEE COMM M/uL (3.50-5.50); WBC 17.5 K/uL (4.0-11.0)
[2016-11-04 14:15] LABS: MCV SEE COMM fl (83.0-98.0)
[2016-11-04 14:17] LABS: MCH SEE COMM pg (27.0-34.0)
[2016-11-04 14:18] LABS: CALCIUM 8.4 mg/dL (8.5-10.5); CREATININE 1.6 mg/dL (0.6-1.3)
[2016-11-04 14:28] LABS: MCHC 31.2 gm/dL (32.0-36.5)
[2016-11-04 14:29] LABS: HEMATOCRIT 34 % (33.0-50.0)
[2016-11-05 04:42] LABS: BASOPHIL # 0.4 K/uL (0.0-0.2); BASOPHIL % 2.8 %; EOSINOPHIL # 0.7 K/uL (0.0-0.5); EOSINOPHIL % 5.4 %; HEMATOCRIT 29.8 % (33.0-50.0); HEMOGLOBIN 9.8 g/dL (11.0-16.0); IMMATURE GRANULOCYTE # 0.1 K/uL (0.0-0.3); IMMATURE GRANULOCYTE % 0.7 %; LYMPHOCYTE # 2.3 K/uL (0.8-4.0); MCH 29.1 pg (27.0-34.0); MCHC 32.9 gm/dL (32.0-36.5); MCV 88.4 fl (83.0-98.0); MPV 10.6 fl (9.4-12.4); NEUTROPHIL # (ANC) 9.1 K/uL (1.4-9.0); NEUTROPHIL % 67.1 %; NRBC % 1.2 /100WBC (0-0.00); PLATELET COUNT 885 K/uL (150-450); RBC 3.37 M/uL (3.50-5.50); RDW-CV 26.1 % (11.9-14.6); WBC 13.6 K/uL (4.0-11.0)
[2016-11-05 04:55] LABS: ANION GAP 11.8 (10.0-19.0); CALCIUM 8.1 mg/dL (8.5-10.5); CREATININE 1.6 mg/dL (0.6-1.3); POTASSIUM 4.8 mMol/L (3.7-5.1)
[2016-11-06 05:10] LABS: HEMATOCRIT 29.3 % (33.0-50.0); HEMOGLOBIN 9.7 g/dL (11.0-16.0); MCH 29.1 pg (27.0-34.0); MCHC 33.1 gm/dL (32.0-36.5); MPV 10.2 fl (9.4-12.4); PLATELET COUNT 853 K/uL (150-450); RBC 3.33 M/uL (3.50-5.50)
[2016-11-06 05:27] LABS: ALBUMIN 3.5 gm/dL (3.5-5.0); ANION GAP 12.7 (10.0-19.0); CALCIUM 8.3 mg/dL (8.5-10.5); CREATININE 1.5 mg/dL (0.6-1.3); PHOSPHORUS 3.1 mg/dL (2.5-4.9); POTASSIUM 4.7 mMol/L (3.7-5.1)
[2016-11-06 06:03] LABS: ABSOLUTE NEUTROPHIL CT (ANC) 6.6 K/uL (1.4-9.0); BANDED NEUTROPHIL # 0.7 K/uL (0.0-0.1); BANDED NEUTROPHILS % 6 %; LYMPHOCYTE # 2.6 K/uL (0.8-4.0); LYMPHOCYTE % 22 %; MONOCYTE # 1.4 K/uL (0.0-1.0); SEGMENTED NEUTROPHIL # 5.9 K/uL (1.4-9.0); SEGMENTED NEUTROPHIL % 49 %
[2016-11-07 05:56] LABS: HEMATOCRIT 30.5 % (33.0-50.0); HEMOGLOBIN 9.8 g/dL (11.0-16.0); MCH 28.2 pg (27.0-34.0); MCHC 32.1 gm/dL (32.0-36.5); MCV 87.6 fl (83.0-98.0); PLATELET COUNT 880 K/uL (150-450); RBC 3.48 M/uL (3.50-5.50); RDW-CV 26.3 % (11.9-14.6); WBC 11.4 K/uL (4.0-11.0)
[2016-11-07 06:12] LABS: ALBUMIN 3.6 gm/dL (3.5-5.0); ANION GAP 12.7 (10.0-19.0); CALCIUM 8.5 mg/dL (8.5-10.5); CREATININE 1.4 mg/dL (0.6-1.3); PHOSPHORUS 3.4 mg/dL (2.5-4.9); POTASSIUM 4.7 mMol/L (3.7-5.1)
[2016-11-07 06:28] LABS: ABSOLUTE NEUTROPHIL CT (ANC) 8.1 K/uL (1.4-9.0); BANDED NEUTROPHIL # 1.4 K/uL (0.0-0.1); BANDED NEUTROPHILS % 12 %; LYMPHOCYTE # 1.4 K/uL (0.8-4.0); LYMPHOCYTE % 12 %; MONOCYTE # 0.3 K/uL (0.0-1.0); SEGMENTED NEUTROPHIL # 6.7 K/uL (1.4-9.0); SEGMENTED NEUTROPHIL % 59 %
== END 2016-11-07 18:47 | disposition disaster alternative care site (69) | DRG 811 ==
LOC: GMED 08:05 → GPCU 09:54
PROVIDERS: Emergency Medicine; Family Medicine; Internal Medicine; ADMIT Internal Medicine
DX: D46.9 Myelodysplastic syndrome, unspecified (principal); E43 Unspecified severe protein-calorie malnutrition; I21.4 Non-ST elevation (NSTEMI) myocardial infarction; E87.0 Hyperosmolality and hypernatremia; E87.2 Acidosis; N17.9 Acute kidney failure, unspecified; I48.0 Paroxysmal atrial fibrillation; D47.3 Essential (hemorrhagic) thrombocythemia; E16.2 Hypoglycemia, unspecified; E87.6 Hypokalemia; G47.33 Obstructive sleep apnea (adult) (pediatric); I10 Essential (primary) hypertension; K21.9 Gastro-esophageal reflux disease without esophagitis; M19.90 Unspecified osteoarthritis, unspecified site; Z79.01 Long term (current) use of anticoagulants
CPT/HCPCS: A9500; A9539; A9540; J1644; J1650; J1940; J2785; J3480; J7030; J7040; P9016

== ENCOUNTER → 2016-11-03 | Outpatient (CLI) | payer MEDICARE, OTHER | END | disposition disaster alternative care site (69) | LOC: GAMB 07:42 | DX: R11.2 Nausea with vomiting, unspecified (principal); R06.02 Shortness of breath; Z79.899 Other long term (current) drug therapy; Z88.2 Allergy status to sulfonamides | CPT/HCPCS: A0425; A0427; J2405 ==